=== PATIENT | female | born 1990 | race Caucasian/White ===

== ENCOUNTER 2017-06-02 08:16 | Emergency (ER) | payer MEDICAID ==
[~2017-06-02] VITALS: Ht 175.3 cm; Wt 75.0 kg
[2017-06-02 08:21] VITALS: BP 154/83; PULSE 128; RESP 14; TEMP 102.4; O2SAT 98
[2017-06-02] MEDS ORDERED: OSEL75 PO ×2 (09:29→10:05)
--- NOTE | 2017-06-02 09:29 | PD ---
HPI Chief Complaint: Cold / Flu Symptoms Time Seen by Provider: 09:03 Travel History International Travel<30 days: No Contact w/Intl Traveler<30days: No Traveled to known affect area: No History of Present Illness HPI 26-year-old female complains about 36 hours of sore throat, fever, muscle aches and pains, runny nose and cough. She wonders if she has the flu. 9 days prior she delivered a term and has been without complications otherwise. No sick contacts. No dyspnea. Some intermittency of symptoms was observed yesterday however they returned overnight and this morning. PFSH Past Medical History Medical History: Denies Significant Hx Tetanus Vaccination: Unknown Influenza Vaccination: No ?: Not : 4 Para: 2 Past Surgical History Surgical History: No Previous Surgery Social History Alcohol Use: Yes (occasional) Tobacco Use: No Substance Use: No Allergies-Medications (Allergen,Severity, Reaction): Coded Allergies: No Known Allergies (Unverified , 06/02/17) Reported Meds & Prescriptions Reported Meds & Active Scripts Active Tamiflu (Oseltamivir Phosphate) 75 Mg Cap 75 Mg PO BID 5 Days Review of Systems Except as stated in HPI: all other systems reviewed are Neg General / Constitutional: Positive: Fever Physical Exam Narrative GENERAL: 26-year-old female pleasant well-nourished well-developed Vital Signs Date Time Temp Pulse Resp B/P (MAP) Pulse Ox O2 Delivery O2 Flow Rate FiO2 06/02/17 08:21 102.4 128 14 154/83 (106) 98 SKIN: Warm and dry. HEAD: Atraumatic. Normocephalic. EYES: Pupils equal and round. No scleral icterus. No injection or drainage. ENT: No nasal bleeding or discharge. Mucous membranes pink and moist. NECK: Trachea midline. No JVD. CARDIOVASCULAR: Regular rate and rhythm. Tachycardia and fever observed likely to be related. RESPIRATORY: No accessory muscle use. Clear to auscultation. Breath sounds equal bilaterally. GASTROINTESTINAL: Abdomen soft, non-tender, nondistended. Hepatic and splenic margins not palpable. MUSCULOSKELETAL: Extremities without clubbing, cyanosis, or edema. No obvious deformities. NEUROLOGICAL: Awake and alert. No obvious cranial nerve deficits. Motor grossly within normal limits. Five out of 5 muscle strength in the arms and legs. Normal speech. PSYCHIATRIC: Appropriate mood and affect; insight and judgment normal. Data Data Last Documented VS Vital Signs Date Time Temp Pulse Resp B/P (MAP) Pulse Ox O2 Delivery O2 Flow Rate FiO2 06/02/17 08:21 102.4 128 14 154/83 (106) 98 Orders Orders Ed Discharge Order (06/02/17 09:29) MDM Medical Decision Making Medical Screen Exam Complete: Yes Emergency Medical Condition: Yes Medical Record Reviewed: Yes Differential Diagnosis Influenza, viral syndrome, sepsis Narrative Course Tachycardia and fever are likely correlated and fever treatment will help with tachycardia. Tamiflu's prescription. Return precautions discussed. This patient is 26 years old and is quite well in appearance overall such that IV fluid infusion coupled with workup for what is reasonably certainly the flu is considered reasonably safely deferable at this time. Diagnosis Primary Impression: Influenza Referrals: Primary Care Physician 2 days Med/Other Pt SpecificInfo: Prescription(s) given Scripts Oseltamivir (Tamiflu) 75 Mg Cap 75 MG PO BID for Mgmt Viral Infection for 5 Days, #10 CAP 0 Refills Prov: Carlton Huerta MD 06/02/17 Disposition: 01 DISCHARGE HOME Condition: Stable Carlton Huerta MD Jun 02, 2017 09:29
[2017-06-02] MEDS ORDERED: ACETAMINOPHEN 500 MG CPLT PO ONE (10:00)
== END 2017-06-02 10:16 | disposition home or self-care (01) ==
LOC: NEPD 08:16
DX: O98.53 Other viral diseases complicating the puerperium (principal); J11.1 Influenza due to unidentified influenza virus with other respiratory manifestations
CPT/HCPCS: 99283

== ENCOUNTER 2017-07-23 14:28 | Emergency (ER) | payer MEDICAID ==
[~2017-07-23 14:28] MED LIST: OSEL75 PO
[2017-07-23] MEDS ORDERED: IOHEXOL 350 MG/ML 10 ML VIAL (for RAD DIAG) IVCONTRAST ONE (14:29)
[2017-07-23 14:39] VITALS: BP 176/93; PULSE 77; RESP 14; TEMP 98.2; O2SAT 98
--- NOTE | 2017-07-23 15:05 | RADRPT ---
EXAM DATE/TIME: 07/23/2017 14:51 [facility] COMPARISON: No previous studies available for comparison. INDICATIONS : Chest tightness and dizziness today. MEDICAL HISTORY : None. SURGICAL HISTORY : None. ENCOUNTER: Initial ACUITY: 1 day PAIN SCORE: 2/10 LOCATION: Bilateral chest FINDINGS: PA and lateral views of the chest demonstrate the lungs to be symmetrically aerated without evidence of mass, infiltrate or effusion. The cardiomediastinal contours are unremarkable. Osseous structure s are intact. CONCLUSION: 1. No acute cardiopulmonary disease. Edd Lennon MD on July 23, 2017 at 15:02 Board Certified Radiologist. This report was verified electronically.
[2017-07-23 16:35] VITALS: BP 126/78; PULSE 73; RESP 18; O2SAT 98
[2017-07-23 16:54] LABS: AUTOMATED NEUTROPHIL # 5.2 TH/MM3 (1.8-7.7); BASOPHIL % 0.2 % (0.0-2.0); EOSINOPHIL # 0.1 TH/MM3 (0-0.4); EOSINOPHIL % 0.9 % (0.0-4.0); HEMATOCRIT 38.5 % (35.0-46.0); HEMOGLOBIN 12.9 GM/DL (11.6-15.3); LYMPH % 30.2 % (9.0-44.0); LYMPHOCYTE # 2.4 TH/MM3 (1.0-4.8); MEAN CELL VOLUME 83.3 FL (80.0-100.0); MEAN CORPUSCULAR HEMOGLOBIN 27.9 PG (27.0-34.0); MEAN CORPUSCULAR HGB CONC 33.5 % (32.0-36.0); MEAN PLATELET VOLUME 7.7 FL (7.0-11.0); MONO % 4.4 % (0.0-8.0); MONOCYTE # 0.4 TH/MM3 (0-0.9); NEUT % 64.3 % (16.0-70.0); PLATELET COUNT 344 TH/MM3 (150-450); RED BLOOD COUNT 4.61 MIL/MM3 (4.00-5.30); RED CELL DISTRIBUTION WIDTH 14.3 % (11.6-17.2)
[2017-07-23 17:00] LABS: BACTERIA, URINE MOD /hpf; BILIRUBIN, URINE NEG (NEG); BLOOD, URINE NEG (NEG); GLUCOSE,URINE NEG (NEG); KETONE, URINE NEG (NEG); NITRITE,URINE NEG (NEG); PH, URINE 6.5 (5.0-8.5); SQUAMOUS EPITHELIAL CELL URINE 9 /hpf (0-5); URINE COLOR COLORLESS (YELLW/STRAW); URINE LEUKOCYTE ESTERASE MOD (NEG)
[2017-07-23 17:07] LABS: PROTHROMBIN TIME - PATIENT 10.2 SEC (9.8-11.6)
[2017-07-23 17:22] LABS: D-DIMER 0.77 MG/L FEU (0.00-0.50)
--- NOTE | 2017-07-23 17:23 | PD ---
HPI Chief Complaint: Dizziness Time Seen by Provider: 17:00 Travel History International Travel<30 days: No Contact w/Intl Traveler<30days: No Traveled to known affect area: No History of Present Illness HPI 26-year-old female complains of dizziness and paresthesias which occurred about 3 hours ago while shopping at [employer]. Symptoms lasted a few minutes. Patient reports chest tightness and heaviness of the same time of mild severity also resolving spontaneously minutes later. Patient reports drinking coffee this morning somewhat atypical for her however no major complaints and diet otherwise. She reports taking control now for 2 weeks. One prior hypotensive episode elicited similar symptoms. The patient also reports slight confusion lately and difficulty concentrating as well as dizziness which occurs with attempts to concentrate. No nausea vomiting or palpitations. No diaphoresis. PFSH Past Medical History : 4 Para: 2 Social History Alcohol Use: Yes (occasional) Tobacco Use: No Substance Use: No Allergies-Medications (Allergen,Severity, Reaction): Coded Allergies: No Known Allergies (Unverified , 06/02/17) Reported Meds & Prescriptions Reported Meds & Active Scripts Active Macrobid (Nitrofurantoin Monoh/Nitrofur Macro) 100 Mg Cap 100 Mg PO BID 5 Days Tamiflu (Oseltamivir Phosphate) 75 Mg Cap 75 Mg PO BID 5 Days Review of Systems Except as stated in HPI: all other systems reviewed are Neg General / Constitutional: No: Fever Physical Exam Narrative GENERAL: 26 yo F, WNWD, NAD Vital Signs Date Time Temp Pulse Resp B/P (MAP) Pulse Ox O2 Delivery O2 Flow Rate FiO2 07/23/17 14:39 98.2 77 14 176/93 (120) 98 SKIN: Warm and dry. HEAD: Atraumatic. Normocephalic. EYES: Pupils equal and round. No scleral icterus. No injection or drainage. ENT: No nasal bleeding or discharge. Mucous membranes pink and moist. NECK: Trachea midline. No JVD. CARDIOVASCULAR: Regular rate and rhythm. RESPIRATORY: No accessory muscle use. Clear to auscultation. Breath sounds equal bilaterally. GASTROINTESTINAL: Abdomen soft, non-tender, nondistended. Hepatic and splenic margins not palpable. MUSCULOSKELETAL: Extremities without clubbing, cyanosis, or edema. No obvious deformities. NEUROLOGICAL: Awake and alert. No obvious cranial nerve deficits. Motor grossly within normal limits. Five out of 5 muscle strength in the arms and legs. Normal speech. PSYCHIATRIC: Appropriate mood and affect; insight and judgment normal. Data Data Last Documented VS Vital Signs Date Time Temp Pulse Resp B/P (MAP) Pulse Ox O2 Delivery O2 Flow Rate FiO2 07/23/17 16:35 75 18 98 Room Air 07/23/17 16:35 126/78 (94) 07/23/17 14:39 98.2 Orders Orders Electrocardiogram (07/23/17 14:42) Complete Blood Count With Diff (07/23/17 14:42) Basic Metabolic Panel (Bmp) (07/23/17 14:42) Ckmb (Isoenzyme) Profile (07/23/17 14:42) Troponin I (07/23/17 14:42) Iv Access Insert/Monitor (07/23/17 14:42) Ecg Monitoring (07/23/17 14:42) Oxygen Administration (07/23/17 14:42) Oximetry (07/23/17 14:42) Act Partial Throm Time (Ptt) (07/23/17 14:42) Prothrombin Time / Inr (Pt) (07/23/17 14:42) D-Dimer (07/23/17 14:42) Ed Urine Pregnancytest Poc (07/23/17 14:42) Urinalysis - C+S If Indicated (07/23/17 14:42) Chest, Pa & Lat (07/23/17 ) Urine Culture (07/23/17 14:46) Ct Pulmonary Angiogram (07/23/17 17:40) Iohexol 350 Inj (Omnipaque 350 Inj) (07/23/17 14:29) Ed Discharge Order (07/23/17 18:44) Labs Laboratory Tests Test 07/23/17 14:46 07/23/17 15:00 Urine Color COLORLESS Urine Turbidity HAZY Urine pH 6.5 Urine Specific [place] 1.004 Urine Protein NEG mg/dL Urine Glucose (UA) NEG mg/dL Urine Ketones NEG mg/dL Urine Occult Blood NEG Urine Nitrite NEG Urine Bilirubin NEG Urine Urobilinogen LESS THAN 2.0 MG/DL Urine Leukocyte Esterase MOD Urine WBC 6 /hpf Urine Squamous Epithelial Cells 9 /hpf Urine Bacteria MOD /hpf Microscopic Urinalysis Comment CULTURE INDICATED White Blood Count 8.0 TH/MM3 Red Blood Count 4.61 MIL/MM3 Hemoglobin 12.9 GM/DL Hematocrit 38.5 % Mean Corpuscular Volume 83.3 FL Mean Corpuscular Hemoglobin 27.9 PG Mean Corpuscular Hemoglobin Concent 33.5 % Red Cell Distribution Width 14.3 % Platelet Count 344 TH/MM3 Mean Platelet Volume 7.7 FL Neutrophils (%) (Auto) 64.3 % Lymphocytes (%) (Auto) 30.2 % Monocytes (%) (Auto) 4.4 % Eosinophils (%) (Auto) 0.9 % Basophils (%) (Auto) 0.2 % Neutrophils # (Auto) 5.2 TH/MM3 Lymphocytes # (Auto) 2.4 TH/MM3 Monocytes # (Auto) 0.4 TH/MM3 Eosinophils # (Auto) 0.1 TH/MM3 Basophils # (Auto) 0.0 TH/MM3 CBC Comment DIFF FINAL Differential Comment Prothrombin Time 10.2 SEC Prothromb Time International Ratio 1.0 RATIO Activated Partial Thromboplast Time 25.0 SEC D-Dimer Quantitative (PE/DVT) 0.77 MG/L FEU Blood Urea Nitrogen 15 MG/DL Creatinine 0.97 MG/DL Random Glucose 79 MG/DL Calcium Level 9.6 MG/DL Sodium Level 137 MEQ/L Potassium Level 4.0 MEQ/L Chloride Level 102 MEQ/L Carbon Dioxide Level 27.5 MEQ/L Anion Gap 8 MEQ/L Estimat Glomerular Filtration Rate 69 ML/MIN Total Creatine Kinase 92 U/L Troponin I LESS THAN 0.02 NG/ML [facility] Medical Decision Making Medical Screen Exam Complete: Yes Emergency Medical Condition: Yes Differential Diagnosis hypotension, electrolyte imbalance, PE, thyroid disease, anemia, arrhythmia Narrative Course EKG: sinus rhythm, no ischemic injury pattern, rate approx 75 CBC & BMP Diagram 07/23/17 15:00 Calcium Level 9.[address] Angiography 07/23/17 1740 Signed Impressions: Service Date/Time: July 18:17 - CONCLUSION: No evidence of pulmonary embolism. Slight prominence of bilateral hilar joyce tissue. Kody Ca MD Chest X-Ray 07/23/17 0000 Signed Impressions: Service Date/Time: July 14:51 - CONCLUSION: 1. No acute cardiopulmonary disease. Edd Lennon MD UA equivocal and in the absence of significant abnormality otherwise treatment for cystitis considered reasonable intervention. Hilar lymphadenopathy CT notes discussed with patient as well as follow up with primary care. Diagnosis Primary Impression: Paresthesia Additional Impressions: Chest tightness Dizziness Bacteriuria Hilar lymphadenopathy Referrals: [facility] 1 week Hilar adenopathy Primary Care Physician 2 days Med/Other Pt SpecificInfo: Prescription(s) given Scripts Nitrofurantoin Monohydrate Macrocrystals (Macrobid) 100 Mg Cap 100 MG PO BID for Infection for 5 Days, #10 CAP 0 Refills Prov: Carlton Huerta MD 07/23/17 Disposition: DISCHARGE HOME Condition: Stable Carlton Huerta MD Jul 23, 2017 17:23
[2017-07-23 17:24] LABS: BICARBONATE 27.5 MEQ/L (21.0-32.0); BLOOD UREA NITROGEN 15 MG/DL (7-18); CALCIUM 9.6 MG/DL (8.5-10.1); CHLORIDE 102 MEQ/L (98-107); CREATININE 0.97 MG/DL (0.50-1.00); GLOMERULAR FILTRATION RATE 69 ML/MIN (>89); GLUCOSE,RANDOM 79 MG/DL (74-106); SODIUM (NA) 137 MEQ/L (136-145)
[2017-07-23 17:29] LABS: TROPONIN I LESS THAN 0.02 NG/ML (0.02-0.05)
--- NOTE | 2017-07-23 18:33 | RADRPT ---
EXAM DATE/TIME: 07/23/2017 18:17 [facility] COMPARISON: No previous studies available for comparison. INDICATIONS : Near syncopal episode,chest pressure,shortness of breath IV CONTRAST: 65 cc Omnipaque 350 (iohexol) IV RADIATION DOSE: 8.29 CTDIvol (mGy) MEDICAL HISTORY : None SURGICAL HISTORY : None. ENCOUNTER: Initial ACUITY: 1 day PAIN SCALE: 0/10 LOCATION: chest TECHNIQUE: Volumetric scanning of the chest was performed using a pulmonary embolism protocol MIP images were re constructed. Using automated exposure control and adjustment of the mA and/or kV according to patien t size, radiation dose was kept as low as reasonably achievable to obtain optimal diagnostic quality images. DICOM format image data is available electronically for review and comparison. Follow-up recommendations for detected pulmonary nodules are based at a minimum on nodule size and pa tient risk factors according to Fleischner Society Guidelines. FINDINGS: PULMONARY ARTERIES: No filling defects are seen in the pulmonary arteries through the segmental level. LUNGS: There is no consolidation or pneumothorax . No concerning pulmonary nodule is visualized. PLEURAE: There is no pleural thickening or pleural effusion. MEDIASTINUM: There is minimally prominent joyce tissue in the jm bilaterally, slightly more pronounced on the ri ght than the left. No evidence of central mediastinal mass or adenopathy. MUSCULOSKELETAL: Within normal limits for patient age. MISCELLANEOUS: The visualized upper abdominal organs demonstrate no acute abnormality. CONCLUSION: No evidence of pulmonary embolism. Slight prominence of bilateral hilar joyce tissue. Kody Ca MD on July 23, 2017 at 18:28 Board Certified Radiologist. This report was verified electronically.
[2017-07-23] MEDS ORDERED: MACR100C2 PO (18:42)
--- NOTE | 2017-07-25 09:19 | EKG ---
Date Performed: 07/23/2017 Time Performed: 15:07:35 PTAGE: 26 years EKG: Sinus rhythm WITH SINUS ARRHYTHMIA NORMAL ECG NO PREVIOUS TRACING DOCTOR: Moriah Hinds Interpretating Date/Time 07/25/2017 09:13:27
== END 2017-07-23 19:40 | disposition home or self-care (01) ==
LOC: NEPD 14:28
DX: R20.2 Paresthesia of skin (principal); R07.89 Other chest pain; R42 Dizziness and giddiness; R82.71 Bacteriuria; R59.0 Localized enlarged lymph nodes
CPT/HCPCS: 71046; 71275; 80048; 81001; 82550; 84484; 84703; 85025; 85379; 85610; 85730; 87086; 93005; 99285; Q9967

== ENCOUNTER 2017-08-16 03:55 | Emergency (ER) | payer MEDICAID ==
[~2017-08-16] VITALS: Ht 175.3 cm; Wt 80.0 kg
[~2017-08-16 03:55] MED LIST changes: +MACR100C2 PO
[2017-08-16 04:03] VITALS: BP 147/79; PULSE 96; RESP 18; TEMP 97.8; O2SAT 98
[2017-08-16 04:16] VITALS: BP 131/79; PULSE 73; RESP 18; TEMP 98.8; O2SAT 97
[2017-08-16] MEDS ORDERED: SODIUM CHLOR 0.9% 1000 ML INJ 1,000 ML IV SCH (04:18)
--- NOTE | 2017-08-16 04:26 | PD ---
HPI Chief Complaint: GI Complaint Time Seen by Provider: 04:25 Travel History International Travel<30 days: No Contact w/Intl Traveler<30days: No Traveled to known affect area: No History of Present Illness HPI 26-year-old female patient with history of gestational diabetes, presents to the ER today with 3 days history of ongoing watery diarrhea and abdominal cramping. She has been nauseous but denies any vomiting, fevers, or other symptoms. She does not know of any sick contacts, denies any recent antibiotic use, and does not think she ate anything bad although she did eat a chip[employer] before the symptoms started. Modifying Factors: None Associated Signs & Symptoms: Watery diarrhea for 3 days Risk Factors: None PFSH Past Medical History Medical History: Denies Significant Hx Diminished Hearing: No Tetanus Vaccination: < 5 Years Influenza Vaccination: No ?: Unknown LMP: 07/15/2017 : 4 Para: 2 Past Surgical History Surgical History: No Previous Surgery Social History Alcohol Use: No Tobacco Use: No Substance Use: No Allergies-Medications (Allergen,Severity, Reaction): Coded Allergies: No Known Allergies (Unverified , 08/16/17) Reported Meds & Prescriptions Reported Meds & Active Scripts Active Macrobid (Nitrofurantoin Monoh/Nitrofur Macro) 100 Mg Cap 100 Mg PO BID 5 Days Tamiflu (Oseltamivir Phosphate) 75 Mg Cap 75 Mg PO BID 5 Days Review of Systems Except as stated in HPI: all other systems reviewed are Neg Physical Exam Narrative GENERAL: Well-developed young female patient currently in mild distress. Awake and oriented 3. SKIN: Focused skin assessment warm/dry. HEAD: Atraumatic. Normocephalic. EYES: Pupils equal and round. No scleral icterus. No injection or drainage. ENT: No nasal bleeding or discharge. Mucous membranes pink and moist. NECK: Trachea midline. No JVD. CARDIOVASCULAR: Regular rate and rhythm. No murmur appreciated. RESPIRATORY: No accessory muscle use. Clear to auscultation. Breath sounds equal bilaterally. GASTROINTESTINAL: Abdomen soft, mild periumbilical tenderness without guarding or rebound, nondistended. Hepatic and splenic margins not palpable. MUSCULOSKELETAL: No obvious deformities. No clubbing. No cyanosis. No edema. NEUROLOGICAL: Awake and alert. No obvious cranial nerve deficits. Motor grossly within normal limits. Normal speech. PSYCHIATRIC: Appropriate mood and affect; insight and judgment normal. Data Data Last Documented VS Vital Signs Date Time Temp Pulse Resp B/P (MAP) Pulse Ox O2 Delivery O2 Flow Rate FiO2 08/16/17 04:16 98.8 73 18 131/79 (96) 97 Room Air Orders Orders Complete Blood Count With Diff (08/16/17 04:18) Comprehensive Metabolic Panel (08/16/17 04:18) Lipase (08/16/17 04:18) Urinalysis - C+S If Indicated (08/16/17 04:18) Iv Access Insert/Monitor (08/16/17 04:18) Ecg Monitoring (08/16/17 04:18) Oximetry (08/16/17 04:18) Sodium Chlor 0.9% 1000 Ml Inj (Ns 1000 M (08/16/17 04:18) Sodium Chloride 0.9% Flush (Ns Flush) (08/16/17 04:30) Ed Urine Pregnancytest Poc (08/16/17 04:18) Labs Laboratory Tests Test 08/16/17 04:20 08/16/17 04:50 White Blood Count 4.1 TH/MM3 Red Blood Count 4.87 MIL/MM3 Hemoglobin 13.4 GM/DL Hematocrit 39.5 % Mean Corpuscular Volume 81.1 FL Mean Corpuscular Hemoglobin 27.5 PG Mean Corpuscular Hemoglobin Concent 33.9 % Red Cell Distribution Width 14.9 % Platelet Count 262 TH/MM3 Mean Platelet Volume 7.7 FL Neutrophils (%) (Auto) 46.9 % Lymphocytes (%) (Auto) 39.4 % Monocytes (%) (Auto) 11.4 % Eosinophils (%) (Auto) 2.0 % Basophils (%) (Auto) 0.3 % Neutrophils # (Auto) 1.9 TH/MM3 Lymphocytes # (Auto) 1.6 TH/MM3 Monocytes # (Auto) 0.5 TH/MM3 Eosinophils # (Auto) 0.1 TH/MM3 Basophils # (Auto) 0.0 TH/MM3 CBC Comment DIFF FINAL Differential Comment Blood Urea Nitrogen 13 MG/DL Creatinine 0.95 MG/DL Random Glucose 82 MG/DL Total Protein 7.8 GM/DL Albumin 3.6 GM/DL Calcium Level 8.5 MG/DL Alkaline Phosphatase 80 U/L Aspartate Amino Transf (AST/SGOT) 24 U/L Alanine Aminotransferase (ALT/SGPT) 27 U/L Total Bilirubin 0.6 MG/DL Sodium Level 140 MEQ/L Potassium Level 3.7 MEQ/L Chloride Level 106 MEQ/L Carbon Dioxide Level 26.3 MEQ/L Anion Gap 8 MEQ/L Estimat Glomerular Filtration Rate 71 ML/MIN Lipase 161 U/L Urine Color LIGHT-YELLOW Urine Turbidity CLEAR Urine pH 5.5 Urine Specific [place] 1.006 Urine Protein NEG mg/dL Urine Glucose (UA) NEG mg/dL Urine Ketones NEG mg/dL Urine Occult Blood NEG Urine Nitrite NEG Urine Bilirubin NEG Urine Urobilinogen LESS THAN 2.0 MG/DL Urine Leukocyte Esterase NEG Urine RBC 1 /hpf Urine WBC LESS THAN 1 /hpf Urine Squamous Epithelial Cells 7 /hpf Urine Bacteria OCC /hpf Microscopic Urinalysis Comment CULT NOT INDICATED MDM Medical Decision Making Medical Screen Exam Complete: Yes Emergency Medical Condition: Yes Medical Record Reviewed: Yes Interpretation(s) Laboratory Tests Test 08/16/17 04:20 08/16/17 04:50 Monocytes (%) (Auto) 11.4 % (0.0-8.0) Estimat Glomerular Filtration Rate 71 ML/MIN (>89) Urine Bacteria OCC /hpf (NONE) Differential Diagnosis Gastroenteritis versus food poisoning versus dehydration versus metabolic issues Narrative Course Abdomen is benign and I do not suspect an acute intra-abdominal process. Lab work was fairly unremarkable, no significant electrolyte abnormalities or dehydration. She was given IV fluids in the ER. At this point, my plan would be to release her with symptomatic relief for the diarrhea. Return for worsening in symptoms as necessary. The plan has been discussed with her and she states understanding. Diagnosis Primary Impression: Diarrhea Med/Other Pt SpecificInfo: Prescription(s) given Scripts Loperamide (Imodium A-D) 2 Mg Capsule 2 MG PO DIRECTED Y for DIARRHEA, #15 CAP 0 Refills One capsule after each loose stool. Not to exceed 8 tablets per day. Prov: Jacque Schuster MD 08/16/17 Disposition: 01 DISCHARGE HOME Condition: Stable Jacque Schuster MD August 16, 2017 04:26
[2017-08-16] MEDS ORDERED: SODIUM CHLORIDE 0.9% FLUSH 10 ML FLUSH IV FLUSH PRN (04:30)
[2017-08-16 04:55] LABS: AUTOMATED NEUTROPHIL # 1.9 TH/MM3 (1.8-7.7); BASOPHIL % 0.3 % (0.0-2.0); EOSINOPHIL # 0.1 TH/MM3 (0-0.4); HEMATOCRIT 39.5 % (35.0-46.0); HEMOGLOBIN 13.4 GM/DL (11.6-15.3); LYMPH % 39.4 % (9.0-44.0); LYMPHOCYTE # 1.6 TH/MM3 (1.0-4.8); MEAN CELL VOLUME 81.1 FL (80.0-100.0); MEAN CORPUSCULAR HEMOGLOBIN 27.5 PG (27.0-34.0); MEAN CORPUSCULAR HGB CONC 33.9 % (32.0-36.0); MEAN PLATELET VOLUME 7.7 FL (7.0-11.0); MONO % 11.4 % (0.0-8.0); MONOCYTE # 0.5 TH/MM3 (0-0.9); NEUT % 46.9 % (16.0-70.0); PLATELET COUNT 262 TH/MM3 (150-450); RED BLOOD COUNT 4.87 MIL/MM3 (4.00-5.30); RED CELL DISTRIBUTION WIDTH 14.9 % (11.6-17.2); WHITE BLOOD COUNT 4.1 TH/MM3 (4.0-11.0)
[2017-08-16 05:01] LABS: BACTERIA, URINE OCC /hpf; BILIRUBIN, URINE NEG (NEG); BLOOD, URINE NEG (NEG); GLUCOSE,URINE NEG (NEG); KETONE, URINE NEG (NEG); NITRITE,URINE NEG (NEG); PH, URINE 5.5 (5.0-8.5); SQUAMOUS EPITHELIAL CELL URINE 7 /hpf (0-5); URINE COLOR LIGHT-YELLOW (YELLW/STRAW); URINE LEUKOCYTE ESTERASE NEG (NEG)
[2017-08-16 05:11] LABS: ALBUMIN 3.6 GM/DL (3.4-5.0); ALT (GPT) 27 U/L (10-53); AST (GOT) 24 U/L (15-37); BICARBONATE 26.3 MEQ/L (21.0-32.0); BLOOD UREA NITROGEN 13 MG/DL (7-18); CALCIUM 8.5 MG/DL (8.5-10.1); CHLORIDE 106 MEQ/L (98-107); CREATININE 0.95 MG/DL (0.50-1.00); GLOMERULAR FILTRATION RATE 71 ML/MIN (>89); GLUCOSE,RANDOM 82 MG/DL (74-106); SODIUM (NA) 140 MEQ/L (136-145)
[2017-08-16 05:14] LABS: ALKALINE PHOSPHATASE 80 U/L (45-117); TOTAL BILIRUBIN ADULT 0.6 MG/DL (0.2-1.0); TOTAL PROTEIN 7.8 GM/DL (6.4-8.2)
[2017-08-16] MEDS ORDERED: LOPE-1 PO (05:20)
== END 2017-08-16 06:13 | disposition home or self-care (01) ==
LOC: NEPC 03:55
DX: R19.7 Diarrhea, unspecified (principal); R10.9 Unspecified abdominal pain; R11.0 Nausea
CPT/HCPCS: 80053; 81001; 83690; 84703; 85025; 99283; J7030

== ENCOUNTER 2017-08-19 12:24 | Emergency (ER) | payer MEDICAID ==
[~2017-08-19] VITALS: Ht 175.3 cm; Wt 79.5 kg
[~2017-08-19 12:24] MED LIST changes: +LOPE-1 PO
[2017-08-19 12:37] VITALS: BP 148/90; PULSE 116; RESP 18; TEMP 100.2; O2SAT 100
--- NOTE | 2017-08-19 13:29 | PD ---
HPI Chief Complaint: Cold / Flu Symptoms Time Seen by Provider: 12:59 Travel History International Travel<30 days: No Contact w/Intl Traveler<30days: No Traveled to known affect area: No History of Present Illness HPI 26-year-old female came to the emergency room with history of fever, chills, headache and generalized weakness that started this morning. Patient has not taken any medications and came to the emergency room. She says she was in the emergency room 3 days ago for diarrhea and was discharged home on Imodium. She took the Imodium for 2 days and diarrhea eventually stop. However the symptoms started this morning. She has a baby at home that is sick. She goes to daycare and her illness is attributed to a viral infection from the daycare. Patient says that she gave to the baby 3 months ago and ever since then she has been quite sick. 2 weeks after the delivery she was diagnosed with influenza. She is also a student and is under a lot of stress and not getting enough rest. Patient had a temperature of 100.1 in triage and heart rate of 116 PFSH Past Medical History Narrative Medical List of her past medical, surgical, social and family history is reviewed from the nursing note. Diminished Hearing: No ?: Unknown : 4 Para: 2 Social History Alcohol Use: No Tobacco Use: No Substance Use: No Allergies-Medications (Allergen,Severity, Reaction): Coded Allergies: No Known Allergies (Unverified , 08/19/17) Comments No known drug allergies Reported Meds & Prescriptions Reported Meds & Active Scripts Active Imodium A-D (Loperamide HCl) 2 Mg Capsule 2 Mg PO DIRECTED PRN One capsule after each loose stool. Not to exceed 8 tablets per day. Macrobid (Nitrofurantoin Monoh/Nitrofur Macro) 100 Mg Cap 100 Mg PO BID 5 Days Tamiflu (Oseltamivir Phosphate) 75 Mg Cap 75 Mg PO BID 5 Days Narrative Medication List of her home medications reviewed from the nursing note. Review of Systems Except as stated in HPI: all other systems reviewed are Neg General / Constitutional: Positive: Fever, Chills HENT: Positive: Headaches Musculoskeletal: Positive: Myalgias Physical Exam Narrative GENERAL: Awake, alert, moderate distress SKIN: Focused skin assessment warm/dry. HEAD: Atraumatic. Normocephalic. EYES: Pupils equal and round. No scleral icterus. No injection or drainage. ENT: No nasal bleeding or discharge. Mucous membranes pink and moist. NECK: Trachea midline. No JVD. CARDIOVASCULAR: Regular rate and rhythm. No murmur appreciated. RESPIRATORY: No accessory muscle use. Clear to auscultation. Breath sounds equal bilaterally. GASTROINTESTINAL: Abdomen soft, non-tender, nondistended. Hepatic and splenic margins not palpable. MUSCULOSKELETAL: No obvious deformities. No clubbing. No cyanosis. No edema. NEUROLOGICAL: Awake and alert. No obvious cranial nerve deficits. Motor grossly within normal limits. Normal speech. PSYCHIATRIC: Appropriate mood and affect; insight and judgment normal. Data Data Last Documented VS Orders Orders Sepsis Workup Initiated (08/19/17 ) Complete Blood Count With Diff (08/19/17 13:23) Comprehensive Metabolic Panel (08/19/17 13:23) Lactic Acid Sepsis Protocol (08/19/17 13:23) Urinalysis - C+S If Indicated (08/19/17 13:23) Influenzae A/B Antigen (08/19/17 13:23) Blood Culture (08/19/17 13:23) Chest, Single Ap (08/19/17 13:23) Blood Glucose (08/19/17 13:23) Ecg Monitoring (08/19/17 13:23) Iv Access Insert/Monitor (08/19/17 13:23) Oximetry (08/19/17 13:23) Oxygen Administration (08/19/17 13:23) Acetaminophen (Tylenol) (08/19/17 13:30) Sodium Chlor 0.9% 1000 Ml Inj (Ns 1000 M (08/19/17 13:30) Urine Culture (08/19/17 14:00) Potassium Chloride Eff (K-Lyte Cl Eff) (08/19/17 15:00) Nitrofurantoin Monohyd Macrocr (Macrobid (08/19/17 15:00) Ed Discharge Order (08/19/17 15:02) Labs Laboratory Tests Test 08/19/17 14:00 08/19/17 14:15 08/19/17 14:17 Urine Color LIGHT-YELLOW Urine Turbidity CLEAR Urine pH 5.0 Urine Specific [place] 1.004 Urine Protein NEG mg/dL Urine Glucose (UA) NEG mg/dL Urine Ketones NEG mg/dL Urine Occult Blood NEG Urine Nitrite NEG Urine Bilirubin NEG Urine Urobilinogen LESS THAN 2.0 MG/DL Urine Leukocyte Esterase LARGE Urine RBC 3 /hpf Urine WBC 13 /hpf Urine Squamous Epithelial Cells 3 /hpf Urine Bacteria OCC /hpf Microscopic Urinalysis Comment CATH-CULTURE IND Lactic Acid Level 0.8 mmol/L White Blood Count 11.0 TH/MM3 Red Blood Count 4.34 MIL/MM3 Hemoglobin 11.8 GM/DL Hematocrit 35.2 % Mean Corpuscular Volume 81.1 FL Mean Corpuscular Hemoglobin 27.3 PG Mean Corpuscular Hemoglobin Concent 33.6 % Red Cell Distribution Width 14.8 % Platelet Count 229 TH/MM3 Mean Platelet Volume 7.8 FL Neutrophils (%) (Auto) 88.3 % Lymphocytes (%) (Auto) 8.8 % Monocytes (%) (Auto) 2.5 % Eosinophils (%) (Auto) 0.0 % Basophils (%) (Auto) 0.4 % Neutrophils # (Auto) 9.7 TH/MM3 Lymphocytes # (Auto) 1.0 TH/MM3 Monocytes # (Auto) 0.3 TH/MM3 Eosinophils # (Auto) 0.0 TH/MM3 Basophils # (Auto) 0.0 TH/MM3 CBC Comment DIFF FINAL Differential Comment Blood Urea Nitrogen 7 MG/DL Creatinine 0.80 MG/DL Random Glucose 87 MG/DL Total Protein 7.3 GM/DL Albumin 3.7 GM/DL Calcium Level 8.7 MG/DL Alkaline Phosphatase 72 U/L Aspartate Amino Transf (AST/SGOT) 25 U/L Alanine Aminotransferase (ALT/SGPT) 36 U/L Total Bilirubin 0.8 MG/DL Sodium Level 140 MEQ/L Potassium Level 3.2 MEQ/L Chloride Level 106 MEQ/L Carbon Dioxide Level 26.9 MEQ/L Anion Gap 7 MEQ/L Estimat Glomerular Filtration Rate 87 ML/MIN [facility] Medical Decision Making Medical Screen Exam Complete: Yes Emergency Medical Condition: Yes Medical Record Reviewed: Yes Differential Diagnosis Viral illness, influenza, dehydration, UTI Narrative Course 2:09 PM awaiting for blood test results and UA. Patient is getting IV fluid bolus and Tylenol. Chest x-ray is resulted as negative. 2:59 PM blood test results are back and within acceptable limits. CBC shows some left shift but lactic acid and total white blood cell counts are within normal limit. UA shows more than normal white blood cells and based on that I will give her a dose of Macrobid. She is otherwise okay to be discharged home. Procedures EKG Prior to Arrival: No Diagnosis Primary Impression: Viral illness Additional Impression: Possible urinary tract infection Referrals: Primary Care Physician Additional Instructions: Return to the ER if condition worsens any other new concerns. Otherwise take Tylenol/Motrin/Advil/ibuprofen for fever and/or headache. Drink lots of fluid to stay hydrated. Disposition: 01 DISCHARGE HOME Condition: Stable Gaudencio Saini MD August 19, 2017 13:29
[2017-08-19] MEDS ORDERED: ACETAMINOPHEN 325 MG TAB PO ONE (13:30)
[2017-08-19] MEDS ORDERED: SODIUM CHLOR 0.9% 1000 ML INJ 1,000 ML IV ONE (13:30)
--- NOTE | 2017-08-19 13:48 | RADRPT ---
EXAM DATE/TIME: 08/19/2017 13:28 [place] COMPARISON: No previous studies available for comparison. INDICATIONS : Shortness of breath, headache, and weakness. MEDICAL HISTORY : None. SURGICAL HISTORY : None. ENCOUNTER: Initial ACUITY: 3 days PAIN SCORE: 0/10 LOCATION: Bilateral chest FINDINGS: A single view of the chest demonstrates the lungs to be symmetrically aerated without evidence of mas s, infiltrate or effusion. The cardiomediastinal contours are unremarkable. Osseous structures are intact. CONCLUSION: No acute cardiopulmonary process. Mickey Krueger MD on August 19, 2017 at 13:46 Board Certified Radiologist. This report was verified electronically.
[2017-08-19 14:30] LABS: AUTOMATED NEUTROPHIL # 9.7 TH/MM3 (1.8-7.7); BASOPHIL % 0.4 % (0.0-2.0); HEMATOCRIT 35.2 % (35.0-46.0); HEMOGLOBIN 11.8 GM/DL (11.6-15.3); LYMPH % 8.8 % (9.0-44.0); MEAN CELL VOLUME 81.1 FL (80.0-100.0); MEAN CORPUSCULAR HEMOGLOBIN 27.3 PG (27.0-34.0); MEAN CORPUSCULAR HGB CONC 33.6 % (32.0-36.0); MEAN PLATELET VOLUME 7.8 FL (7.0-11.0); MONO % 2.5 % (0.0-8.0); MONOCYTE # 0.3 TH/MM3 (0-0.9); NEUT % 88.3 % (16.0-70.0); PLATELET COUNT 229 TH/MM3 (150-450); RED BLOOD COUNT 4.34 MIL/MM3 (4.00-5.30); RED CELL DISTRIBUTION WIDTH 14.8 % (11.6-17.2)
[2017-08-19 14:36] LABS: BACTERIA, URINE OCC /hpf; BILIRUBIN, URINE NEG (NEG); BLOOD, URINE NEG (NEG); GLUCOSE,URINE NEG (NEG); KETONE, URINE NEG (NEG); NITRITE,URINE NEG (NEG); SQUAMOUS EPITHELIAL CELL URINE 3 /hpf (0-5); URINE COLOR LIGHT-YELLOW (YELLW/STRAW); URINE LEUKOCYTE ESTERASE LARGE (NEG)
[2017-08-19 14:46] LABS: ALBUMIN 3.7 GM/DL (3.4-5.0); ALT (GPT) 36 U/L (10-53); AST (GOT) 25 U/L (15-37); BICARBONATE 26.9 MEQ/L (21.0-32.0); BLOOD UREA NITROGEN 7 MG/DL (7-18); CALCIUM 8.7 MG/DL (8.5-10.1); CHLORIDE 106 MEQ/L (98-107); GLOMERULAR FILTRATION RATE 87 ML/MIN (>89); GLUCOSE,RANDOM 87 MG/DL (74-106); SODIUM (NA) 140 MEQ/L (136-145)
[2017-08-19 14:48] LABS: ALKALINE PHOSPHATASE 72 U/L (45-117); TOTAL BILIRUBIN ADULT 0.8 MG/DL (0.2-1.0); TOTAL PROTEIN 7.3 GM/DL (6.4-8.2)
[2017-08-19] MEDS ORDERED: POTASSIUM CHLORIDE 25 MEQ EFFERVESCENT TAB PO ONE (15:00)
[2017-08-19] MEDS ORDERED: NITROFURANTOIN MONOHYD MACROCR 100 MG CAP PO ONE (15:00)
[2017-08-19 15:01] VITALS: BP 123/71; PULSE 100; RESP 17; TEMP 98.9; O2SAT 100
== END 2017-08-19 15:43 | disposition home or self-care (01) ==
LOC: NEPD 12:24
DX: B34.9 Viral infection, unspecified (principal); R82.99 Other abnormal findings in urine; R50.9 Fever, unspecified; R51 Headache; R53.1 Weakness; R00.0 Tachycardia, unspecified
CPT/HCPCS: 71045; 80053; 81001; 83605; 85025; 87040; 87086; 87804; 99284; J7030